=== PATIENT | female | born 1960 | race Caucasian/White ===

== ENCOUNTER 2017-08-09 17:47 | Inpatient (IN) | payer OTHER ==
[~2017-08-09] VITALS: Ht 167.6 cm; Wt 74.8 kg
[~2017-08-09 17:47] MED LIST: ATOR10 PO; DEPA125T OR; IMIT25TA PO; LEVO.075 PO; PRED20 PO; TESS200C PO; ZITH250T PO
[2017-08-09 18:21] VITALS: BP 148/68; PULSE 128; RESP 18; TEMP 102.8; O2SAT 96
[2017-08-09] MEDS ORDERED: SODIUM CHLOR 0.9% 1000 ML INJ 1,000 ML IV ONE (19:10)
[2017-08-09] MEDS ORDERED: SODIUM CHLOR 0.9% 1000 ML INJ 800 ML IV ONE (19:10)
[2017-08-09] MEDS ORDERED: DEXAMETHASONE SOD PHOS 4 MG/ML VIAL IV PUSH ONE (19:15)
[2017-08-09] MEDS ORDERED: KETOROLAC TROMETHAMINE 30 MG/ML (IVP) VIAL IV PUSH ONE (19:15)
[2017-08-09] MEDS ORDERED: ONDANSETRON HCL 4 MG/2 ML VIAL IV ONE (19:15)
--- NOTE | 2017-08-09 19:16 | PD ---
HPI Chief Complaint: GI Complaint Time Seen by Provider: 19:05 Travel History International Travel<30 days: No Contact w/Intl Traveler<30days: No Traveled to known affect area: No History of Present Illness HPI 56-year-old female here for evaluation of sore throat/possible strep pharyngitis , nausea, vomiting, diarrhea, and abdominal discomfort. Symptoms have been going on for the last 36 hours. Emesis is bilious/nonbloody. Bowel movements are watery/mucousy/nonbloody/no melena. Abdominal pain is upper. No history of abdominal surgeries. She has had fever and has had little to eat or drink because of her throat pain. The pain is moderate to severe, constant, worse with swallowing. She reports having diarrhea for the last few weeks which has been nonbloody. No recent travel or recent antibiotic use. PFSH Past Medical History Asthma: Yes Diminished Hearing: No Thyroid Disease: Yes Dilation and Curettage (D&C): Yes Social History Alcohol Use: No Tobacco Use: No Substance Use: No Allergies-Medications (Allergen,Severity, Reaction): Coded Allergies: doxycycline (Unverified Allergy, Severe, SWELLING, 08/09/17) minocycline (Unverified Allergy, Severe, SWELLING, 08/09/17) penicillin G (Unverified Allergy, Severe, UNKNOWN, 08/09/17) tigecycline (Unverified Allergy, Severe, SWELLING, 08/09/17) Reported Meds & Prescriptions Reported Meds & Active Scripts Active Reported Meloxicam 15 Mg Tab 15 Mg PO DAILY PRN Divalproex DR (Divalproex Sodium) 500 Mg Tabdr 500 Mg PO BID Levothyroxine (Levothyroxine Sodium) 200 Mcg Tab 200 Mcg PO DAILY Simvastatin 20 Mg Tab 20 Mg PO HS Review of Systems Except as stated in HPI: all other systems reviewed are Neg Physical Exam Narrative GENERAL: Well-developed, well-nourished, ill-appearing, no apparent distress. SKIN: Focused skin assessment warm/dry. No rash. HEAD: Atraumatic. Normocephalic. EYES: Pupils equal and round. No scleral icterus. No injection or drainage. ENT: No nasal bleeding or discharge. Mucous membranes pink and dry. Pharynx is erythematous with bilateral tonsillar exudates. Uvula is midline. No drooling or stridor. NECK: Trachea midline. No JVD. No nuchal rigidity. CARDIOVASCULAR: Tachycardic, regular, rate 120s. RESPIRATORY: No accessory muscle use. Clear to auscultation. Breath sounds equal bilaterally. GASTROINTESTINAL: Abdomen soft, non-tender, nondistended. MUSCULOSKELETAL: No obvious deformities. No clubbing. No cyanosis. No edema. NEUROLOGICAL: Awake and alert. No obvious cranial nerve deficits. Motor grossly within normal limits. Normal speech. PSYCHIATRIC: Appropriate mood and affect; insight and judgment normal. Data Data Last Documented VS Vital Signs Date Time Temp Pulse Resp B/P (MAP) Pulse Ox O2 Delivery O2 Flow Rate FiO2 08/09/17 21:37 108 18 119/62 (81) 95 Room Air 08/09/17 21:35 99.1 Orders Orders Complete Blood Count With Diff (08/09/17 19:10) Comprehensive Metabolic Panel (08/09/17 19:10) Prothrombin Time / Inr (Pt) (08/09/17 19:10) Act Partial Throm Time (Ptt) (08/09/17 19:10) Lactic Acid Sepsis Protocol (08/09/17 19:10) Blood Culture (08/09/17 19:10) Ecg Monitoring (08/09/17 19:10) Iv Access Insert/Monitor (08/09/17 19:10) Oximetry (08/09/17 19:10) Ondansetron Inj (Zofran Inj) (08/09/17 19:15) Sodium Chlor 0.9% 1000 Ml Inj (Ns 1000 M (08/09/17 19:10) Sodium Chlor 0.9% 1000 Ml Inj (Ns 1000 M (08/09/17 19:10) Ketorolac Inj (Toradol Inj) (08/09/17 19:15) Dexamethasone Inj (Decadron Inj) (08/09/17 19:15) Group A Rapid Strep Screen (08/09/17 19:10) Strep Culture (Group A) (08/09/17 19:10) Acetaminophen (Tylenol) (08/09/17 20:00) Acetaminophen 650 Mg/20 Ml Liq (Tylenol (08/09/17 20:15) Ct Abd/Pel W Iv Contrast(Rout) (08/09/17 20:32) Chest, Single Ap (08/09/17 ) Urinalysis - C+S If Indicated (08/09/17 20:46) Monoscreen (08/09/17 20:50) Iohexol 350 Inj (Omnipaque 350 Inj) (08/09/17 21:19) Ceftriaxone Inj (Rocephin Inj) (08/09/17 22:15) Metronidazole 500 Mg Inj (Flagyl 500 Mg (08/09/17 22:15) Labs Laboratory Tests Test 08/09/17 18:30 08/09/17 21:00 08/09/17 21:05 White Blood Count 9.7 TH/MM3 Red Blood Count 4.65 MIL/MM3 Hemoglobin 9.4 GM/DL Hematocrit 30.1 % Mean Corpuscular Volume 64.8 FL Mean Corpuscular Hemoglobin 20.3 PG Mean Corpuscular Hemoglobin Concent 31.3 % Red Cell Distribution Width 21.6 % Platelet Count 260 TH/MM3 Mean Platelet Volume 7.9 FL Neutrophils (%) (Auto) 78.1 % Lymphocytes (%) (Auto) 11.3 % Monocytes (%) (Auto) 10.0 % Eosinophils (%) (Auto) 0.1 % Basophils (%) (Auto) 0.5 % Neutrophils # (Auto) 7.6 TH/MM3 Lymphocytes # (Auto) 1.1 TH/MM3 Monocytes # (Auto) 1.0 TH/MM3 Eosinophils # (Auto) 0.0 TH/MM3 Basophils # (Auto) 0.0 TH/MM3 CBC Comment AUTO DIFF Differential Comment AUTO DIFF CONFIRMED Platelet Estimate NORMAL Platelet Morphology Comment NORMAL Ovalocytes 2+ Prothrombin Time 12.0 SEC Prothromb Time International Ratio 1.1 RATIO Activated Partial Thromboplast Time 30.9 SEC Blood Urea Nitrogen 8 MG/DL Creatinine 0.85 MG/DL Random Glucose 96 MG/DL Total Protein 7.3 GM/DL Albumin 2.7 GM/DL Calcium Level 8.5 MG/DL Alkaline Phosphatase 105 U/L Aspartate Amino Transf (AST/SGOT) 13 U/L Alanine Aminotransferase (ALT/SGPT) 11 U/L Total Bilirubin 0.5 MG/DL Sodium Level 135 MEQ/L Potassium Level 4.0 MEQ/L Chloride Level 101 MEQ/L Carbon Dioxide Level 26.5 MEQ/L Anion Gap 8 MEQ/L Estimat Glomerular Filtration Rate 69 ML/MIN Lactic Acid Level 1.0 mmol/L Urine Color YELLOW Urine Turbidity CLEAR Urine pH 6.0 Urine Specific [place] 1.011 Urine Protein NEG mg/dL Urine Glucose (UA) NEG mg/dL Urine Ketones 15 mg/dL Urine Occult Blood TRACE Urine Nitrite NEG Urine Bilirubin NEG Urine Leukocyte Esterase NEG Urine RBC 0-3 /hpf Urine WBC 0-2 /hpf Urine Squamous Epithelial Cells 0-5 /hpf Urine Mucus MOD /lpf Microscopic Urinalysis Comment CULT NOT INDICATED MDM Medical Decision Making Medical Screen Exam Complete: Yes Emergency Medical Condition: Yes Differential Diagnosis Sepsis, pharyngitis, dehydration, strep pharyngitis, gastroenteritis, viral illness, acute intra-abdominal/surgical process less likely Narrative Course Initial vital signs show heart rate 128, blood pressure 148/60, pulse ox 96% on room air, oral temp of 102.8F. CBC shows WBC 9.7, hemoglobin 9.4, hematocrit 30.1, platelets 260, neutrophils 78%. CMP is essentially unremarkable. Lactic acid is 1.0. UA is not suggestive of UTI. There are no previous labs on the patient and therefore I do not know the patient's baseline hemoglobin. She reports history of low iron requiring iron transfusions in the past. Her stool is heme positive and brown. CT abdomen pelvis ordered to look for possible diverticulitis/colitis as a source for her fever and heme-positive stool. Group A strep is negative. Chest xray: CONCLUSION: No acute disease. CT abdomen/pelvis: CONCLUSION: 1. Mild diffuse wall thickening is noted involving the descending colon, sigmoid colon and rectum consistent with mild acute colitis. Clinical correlation is recommended. 2. Mild splenomegaly. The patient and the patient's significant other were made aware of all findings. Heart rate improved to 96 after 2 L normal saline IV. Case discussed with on-call [facility] physician Dr. Galicia who will admit the patient to his service. Patient will be started on Flagyl and Rocephin to cover both her colitis and pharyngitis. HemaPrompt Point of Care Internal Pos. & Neg. Controls: Passed Fecal Specimen Occult Blood: Positive Comment Heme positive, brown stool. Diagnosis Primary Impression: Sepsis Qualified Codes: A41.9 - Sepsis, unspecified organism Additional Impressions: Colitis Pharyngitis Qualified Codes: J02.9 - Acute pharyngitis, unspecified Anemia Qualified Codes: D64.9 - Anemia, unspecified Admitting Information Admitting Physician Requests: Admit Ramiro Martel MD Aug 09, 2017 19:16
[2017-08-09 19:33] LABS: AUTOMATED NEUTROPHIL # 7.6 TH/MM3 (1.8-7.7); BASOPHIL % 0.5 % (0.0-2.0); EOSINOPHIL % 0.1 % (0.0-4.0); HEMATOCRIT 30.1 % (35.0-46.0); LYMPH % 11.3 % (9.0-44.0); LYMPHOCYTE # 1.1 TH/MM3 (1.0-4.8); MEAN CELL VOLUME 64.8 FL (80.0-100.0); MEAN CORPUSCULAR HEMOGLOBIN 20.3 PG (27.0-34.0); MEAN CORPUSCULAR HGB CONC 31.3 % (32.0-36.0); NEUT % 78.1 % (16.0-70.0); PLATELET COUNT 260 TH/MM3 (150-450); RED BLOOD COUNT 4.65 MIL/MM3 (4.00-5.30); RED CELL DISTRIBUTION WIDTH 21.6 % (11.6-17.2); WHITE BLOOD COUNT 9.7 TH/MM3 (4.0-11.0)
[2017-08-09 19:38] LABS: HEMO FLAGS AUTO DIFF
[2017-08-09 19:45] VITALS: BP 120/68; PULSE 106; RESP 18; O2SAT 95
[2017-08-09 19:49] LABS: APTT (PATIENT) 30.9 SEC (24.3-30.1); INTERNATIONAL NORMALIZED RATIO 1.1 RATIO
[2017-08-09 19:51] VITALS: O2SAT 96
[2017-08-09] MEDS ORDERED: ACETAMINOPHEN 325 MG TAB PO ONE (20:00)
[2017-08-09 20:09] VITALS: BP 120/66; PULSE 107; RESP 18; TEMP 102.3; O2SAT 94
[2017-08-09] MEDS ORDERED: ACETAMINOPHEN 650 MG/20.3 ML UDC PO ONE (20:15)
[2017-08-09 20:18] LABS: OVALOCYTES 2+ (NORMAL)
[2017-08-09 20:19] LABS: PLATELET ESTIMATE SMEAR NORMAL (NORMAL); PLATELET MORPHOLOGY NORMAL (NORMAL); SCAN/DIFF AUTO DIFF CONFIRMED
[2017-08-09 20:22] LABS: BLOOD UREA NITROGEN 8 MG/DL (7-18)
[2017-08-09 20:23] LABS: ALKALINE PHOSPHATASE 105 U/L (45-117); GLOMERULAR FILTRATION RATE 69 ML/MIN (>89)
[2017-08-09 20:24] LABS: ALT (GPT) 11 U/L (10-53); ANION GAP 8 MEQ/L (5-15); AST (GOT) 13 U/L (15-37); BICARBONATE 26.5 MEQ/L (21.0-32.0); CHLORIDE 101 MEQ/L (98-107); SODIUM (NA) 135 MEQ/L (136-145); TOTAL BILIRUBIN ADULT 0.5 MG/DL (0.2-1.0)
[2017-08-09] MEDS ORDERED: SIMV20TA PO (20:53)
[2017-08-09] MEDS ORDERED: DIVA500T PO (20:53)
[2017-08-09] MEDS ORDERED: MELO-1 PO (20:53)
[2017-08-09] MEDS ORDERED: LEVO200T4 PO (20:53)
--- NOTE | 2017-08-09 21:03 | RADRPT ---
EXAM DATE/TIME: 08/09/2017 20:55 [facility] COMPARISON: No previous studies available for comparison. INDICATIONS : Fever and vomiting. MEDICAL HISTORY : Asthma. SURGICAL HISTORY : None. ENCOUNTER: Initial ACUITY: 2 days PAIN SCORE: 0/10 LOCATION: Bilateral chest FINDINGS: A single view of the chest demonstrates the lungs to be symmetrically aerated without evidence of mas s, infiltrate or effusion. The cardiomediastinal contours are unremarkable. Osseous structures are intact. CONCLUSION: No acute disease. Marcio Cota MD on August 09, 2017 at 21:01 Board Certified Radiologist. This report was verified electronically.
[2017-08-09] MEDS ORDERED: IOHEXOL 350 MG/ML 10 ML VIAL (for RAD DIAG) IVCONTRAST ONE (21:19)
[2017-08-09 21:35] VITALS: BP 124/63; PULSE 98; RESP 18; TEMP 99.1; O2SAT 94
[2017-08-09 21:37] VITALS: BP 119/62; PULSE 108; RESP 18; O2SAT 95
[2017-08-09 21:40] LABS: BLOOD, URINE TRACE (NEG); GLUCOSE,URINE NEG (NEG); KETONE, URINE 15 mg/dL (NEG); NITRITE,URINE NEG (NEG)
--- NOTE | 2017-08-09 21:42 | RADRPT ---
EXAM DATE/TIME: 08/09/2017 21:15 [facility] COMPARISON: No previous studies available for comparison. INDICATIONS : Abdominal pain and diarrhea X 3 days. IV CONTRAST: 96 cc Omnipaque 350 (iohexol) IV ORAL CONTRAST: No oral contrast ingested. RADIATION DOSE: 8.36 CTDIvol (mGy) MEDICAL HISTORY : Asthma SURGICAL HISTORY : D & C ENCOUNTER: Initial ACUITY: 3 days PAIN SCALE: 6/10 LOCATION: abdomen TECHNIQUE: Volumetric scanning of the abdomen and pelvis was performed. Using automated exposure control and ad justment of the mA and/or kV according to patient size, radiation dose was kept as low as reasonably achievable to obtain optimal diagnostic quality images. DICOM format image data is available electro nically for review and comparison. FINDINGS: LOWER LUNGS: The visualized lower lungs are clear. LIVER: Homogeneous density without lesion. There is no dilation of the biliary tree. No calcified gallston es. SPLEEN: Mild splenomegaly is noted. PANCREAS: Within normal limits. KIDNEYS: Normal in size and shape. There is no mass, stone or hydronephrosis. ADRENAL GLANDS: Within normal limits. VASCULAR: There is no aortic aneurysm. BOWEL/MESENTERY: Mild diffuse wall thickening is noted involving the descending colon, sigmoid colon and rectum consis tent with mild acute colitis. Clinical correlation is recommended. The appendix is normal. ABDOMINAL WALL: Within normal limits. RETROPERITONEUM: There is no lymphadenopathy. BLADDER: No wall thickening or mass. REPRODUCTIVE: Within normal limits. INGUINAL: There is no lymphadenopathy or hernia. MUSCULOSKELETAL: Within normal limits for patient age. CONCLUSION: 1. Mild diffuse wall thickening is noted involving the descending colon, sigmoid colon and rectum con sistent with mild acute colitis. Clinical correlation is recommended. 2. Mild splenomegaly. Rajat Woo MD on August 09, 2017 at 21:33 Board Certified Radiologist. This report was verified electronically.
[2017-08-09 21:55] LABS: URINE COLOR YELLOW (YELLW/STRAW)
[2017-08-09 21:56] LABS: MUCUS URINE MOD /lpf (OCC); RBC, URINE 0-3 /hpf (0-3); SQUAMOUS EPITHELIAL CELL URINE 0-5 /hpf (0-5)
[2017-08-09 21:57] LABS: COMMENT (UR) CULT NOT INDICATED; CULTURE IF INDICATED CULT NOT INDICATED; WBC, URINE 0-2 /hpf (0-5)
[2017-08-09] MEDS ORDERED: cefTRIAXone INJ 1,000 MG in SODIUM CHLORIDE 0.9% INJ 100 ML IV ONE (22:15)
[2017-08-09] MEDS ORDERED: metroNIDAZOLE 500 MG INJ 100 ML IV ONE (22:15)
[2017-08-09] MEDS ORDERED: ACETAMINOPHEN 500 MG CPLT PO PRN (22:30)
[2017-08-09] MEDS ORDERED: SODIUM CHLOR 0.9% 1000 ML INJ 1,000 ML IV SCH (22:30)
[2017-08-10 00:38] VITALS: BP 107/60; PULSE 81; RESP 16; TEMP 95.9; O2SAT 98
[2017-08-10 04:30] VITALS: BP 110/59; PULSE 80; RESP 18; TEMP 97.5; O2SAT 100
[2017-08-10 06:12] LABS: AUTOMATED NEUTROPHIL # 6.2 TH/MM3 (1.8-7.7); BASOPHIL % 0.3 % (0.0-2.0); EOSINOPHIL % 0.1 % (0.0-4.0); HEMATOCRIT 27.5 % (35.0-46.0); LYMPH % 6.2 % (9.0-44.0); LYMPHOCYTE # 0.4 TH/MM3 (1.0-4.8); MEAN CELL VOLUME 65.5 FL (80.0-100.0); MEAN CORPUSCULAR HGB CONC 30.5 % (32.0-36.0); MONO % 7.2 % (0.0-8.0); NEUT % 86.2 % (16.0-70.0); PLATELET COUNT 220 TH/MM3 (150-450); RED BLOOD COUNT 4.21 MIL/MM3 (4.00-5.30); RED CELL DISTRIBUTION WIDTH 22.3 % (11.6-17.2); WHITE BLOOD COUNT 7.1 TH/MM3 (4.0-11.0)
[2017-08-10 06:19] LABS: CHLORIDE 109 MEQ/L (98-107); POTASSIUM 4.1 MEQ/L (3.5-5.1); SODIUM (NA) 143 MEQ/L (136-145)
[2017-08-10 06:22] LABS: ANION GAP 10 MEQ/L (5-15); BICARBONATE 24.2 MEQ/L (21.0-32.0); BLOOD UREA NITROGEN 10 MG/DL (7-18)
[2017-08-10 06:25] LABS: GLOMERULAR FILTRATION RATE 96 ML/MIN (>89)
[2017-08-10 06:32] LABS: HEMO FLAGS AUTO DIFF
[2017-08-10 07:11] LABS: OVALOCYTES 1+ (NORMAL); PLATELET ESTIMATE SMEAR NORMAL (NORMAL); PLATELET MORPHOLOGY NORMAL (NORMAL); ROULEAUX PRESENT (NORMAL); SCAN/DIFF AUTO DIFF CONFIRMED
--- NOTE | 2017-08-10 07:31 | HHI.HP ---
HPI Service [facility] Primary Care Physician Asher Baum DO Admission Diagnosis sepsis, colitis, pharyngitis, anemia Chief Complaint: Sore throat, weakness, diarrhea Travel History International Travel<30 Days: No Contact w/Intl Traveler <30 Da: No Traveled to Known Affected Are: No Sepsis Criteria SIRS Criteria (2 or more): Temp > 100.9 or < 96.8, Heart rate over 90 Sepsis Criteria (SIRS+source): Infect source susp/known Criteria Outcome: Meets sepsis criteria History of Present Illness 56-year-old relatively healthy female presented to ER via private vehicle for evaluation of sore throat/possible strep pharyngitis, nausea, vomiting, diarrhea , and abdominal discomfort. Sore throat and emesis have been going on for the last 36 hours, but she has had loose stools for the last 2 weeks. Emesis is bilious/nonbloody. Bowel movements are watery/nonbloody/no melena. Abdominal pain is upper and lower left quadrant. No history of abdominal surgeries. She has had fever and has had little to eat or drink over the last day and a half because of her throat pain. The throat pain is moderate to severe, constant, worse with swallowing. She reports having diarrhea for the last few weeks which has been nonbloody. No recent travel or recent antibiotic use. No others in household with similar illness. No unusual or undercooked foods. No recent medication changes, specifically no recent thyroid medication adjustment. She reports she been on the same dose of thyroid medication for approximately 5 or 6 years. She is not sure when her last thyroid blood work was done and she does blood work relatively infrequently. Review of Systems Constitutional: COMPLAINS OF: Fatigue, Fever, Change in appetite Eyes: DENIES: Blurred vision, Diplopia, Eye inflammation, Eye pain, Vision loss , Photosensitivity, Double Vision Ears, nose, mouth, throat: DENIES: Tinnitus, Hearing loss, Vertigo, Nasal discharge, Oral lesions, Throat pain, Hoarseness, Ear Pain, Running Nose, Epistaxis, Sinus Pain, Toothache, Odynophagia Respiratory: DENIES: Apneas, Cough, Snoring, Wheezing, Hemoptysis, Sputum production, Shortness of breath Cardiovascular: DENIES: Chest pain, Palpitations, Syncope, Dyspnea on Exertion , PND, Lower Extremity Edema, Orthopnea, Claudication Gastrointestinal: COMPLAINS OF: Abdominal pain, Diarrhea, Nausea, Vomiting, Difficulty Swallowing, DENIES: Black stools, Bloody stools, BRB per rectum, Constipation, GERD, Reflux, Anorexia, See HPI Musculoskeletal: COMPLAINS OF: Joint pain Integumentary: DENIES: Abnormal pigmentation, Pruritus, Rash, Nail changes, Breast masses, Breast skin changes, Nipple discharge Hematologic/lymphatic: DENIES: Bruising, Lymphadenopathy Immunologic/allergic: DENIES: Eczema, Urticaria Neurologic: DENIES: Abnormal gait, Headache, Localized weakness, Paresthesias, Seizures, Speech Problems, Tremor, Poor Balance Psychiatric: DENIES: Anxiety, Confusion, Mood changes, Depression, Hallucinations, Agitation, Suicidal Ideation, Homicidal Ideation, Delusions, History of Bipolar, History of Schizophrenia Past Family Social History Past Medical History Hypothyroidism Hyperlipidemia Migraine headache Osteoarthritis Past Surgical History D&C approximate 40 years ago Reported Medications Meloxicam 15 Mg Tab 15 Mg PO DAILY PRN Divalproex DR (Divalproex Sodium) 500 Mg Tabdr 500 Mg PO BID Levothyroxine (Levothyroxine Sodium) 200 Mcg Tab 200 Mcg PO DAILY Simvastatin 20 Mg Tab 20 Mg PO HS Allergies: Coded Allergies: doxycycline (Unverified Allergy, Severe, SWELLING, 08/09/17) minocycline (Unverified Allergy, Severe, SWELLING, 08/09/17) penicillin G (Unverified Allergy, Severe, UNKNOWN, 08/09/17) tigecycline (Unverified Allergy, Severe, SWELLING, 08/09/17) Family History Mother is alive and has hypertension Father is unknown to her Social History No tobacco in 30 years prior to that smoked less than a half pack per day for a few years No alcohol Denies illicit drug use 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 Has 5 adult children Physical Exam Vital Signs Vital Signs Date Time Temp Pulse Resp B/P (MAP) Pulse Ox O2 Delivery O2 Flow Rate FiO2 08/10/17 04:30 97.5 80 18 110/59 (76) 100 Room Air 08/10/17 00:38 95.9 81 16 107/60 (76) 98 Nasal Cannula 1.00 08/09/17 21:37 108 18 119/62 (81) 95 Room Air 08/09/17 21:35 99.1 98 18 124/63 (83) 94 Room Air 08/09/17 20:27 18 08/09/17 20:09 102.3 107 18 120/66 (84) 94 Room Air 08/09/17 19:51 96 Room Air 08/09/17 19:45 106 18 120/68 (85) 95 Room Air 08/09/17 18:21 102.8 128 18 148/68 (94) 96 Physical Exam GENERAL: This is a well-nourished, well-developed patient, in no apparent distress. Somewhat pale appearing SKIN: No rashes, ecchymoses or lesions. Cool and dry. HEAD: Atraumatic. Normocephalic. No temporal or scalp tenderness. EYES: Pupils equal round and reactive. Extraocular motions intact. No scleral icterus. No injection or drainage. ENT: Nose without bleeding, purulent drainage or septal hematoma. Throat with mild erythema but no exudate. Uvula midline. Airway patent. NECK: Trachea midline. No JVD or lymphadenopathy. Supple, nontender, no meningeal signs. CARDIOVASCULAR: Regular rate and rhythm without murmurs, gallops, or rubs. RESPIRATORY: Clear to auscultation. Breath sounds equal bilaterally. No wheezes , rales, or rhonchi. GASTROINTESTINAL: Abdomen soft, nondistended, mild tenderness to palpation in epigastrium and left lower quadrant. No hepato-splenomegaly, or palpable masses. No guarding or rebound. Bowel sounds normal. MUSCULOSKELETAL: Extremities without clubbing, cyanosis, or edema. No joint tenderness, effusion, or edema noted. No calf tenderness. NEUROLOGICAL: Awake and alert. Cranial nerves II through XII intact. Motor and sensory grossly within normal limits. Five out of 5 muscle strength in all muscle groups. Normal speech. Laboratory Laboratory Tests Test 08/09/17 18:30 08/09/17 21:00 08/09/17 21:05 08/10/17 05:55 White Blood Count 9.7 7.1 Red Blood Count 4.65 4.21 Hemoglobin 9.4 8.4 Hematocrit 30.1 27.5 Mean Corpuscular Volume 64.8 65.5 Mean Corpuscular Hemoglobin 20.3 20.0 Mean Corpuscular Hemoglobin Concent 31.3 30.5 Red Cell Distribution Width 21.6 22.3 Platelet Count 260 220 Mean Platelet Volume 7.9 8.1 Neutrophils (%) (Auto) 78.1 86.2 Lymphocytes (%) (Auto) 11.3 6.2 Monocytes (%) (Auto) 10.0 7.2 Eosinophils (%) (Auto) 0.1 0.1 Basophils (%) (Auto) 0.5 0.3 Neutrophils # (Auto) 7.6 6.2 Lymphocytes # (Auto) 1.1 0.4 Monocytes # (Auto) 1.0 0.5 Eosinophils # (Auto) 0.0 0.0 Basophils # (Auto) 0.0 0.0 CBC Comment AUTO DIFF AUTO DIFF Differential Comment AUTO DIFF CONFIRMED AUTO DIFF CONFIRMED Platelet Estimate NORMAL NORMAL Platelet Morphology Comment NORMAL NORMAL Ovalocytes 2+ 1+ Prothrombin Time 12.0 Prothromb Time International Ratio 1.1 Activated Partial Thromboplast Time 30.9 Blood Urea Nitrogen 8 10 Creatinine 0.85 0.64 Random Glucose 96 158 Total Protein 7.3 Albumin 2.7 Calcium Level 8.5 7.9 Alkaline Phosphatase 105 Aspartate Amino Transf (AST/SGOT) 13 Alanine Aminotransferase (ALT/SGPT) 11 Total Bilirubin 0.5 Sodium Level 135 143 Potassium Level 4.0 4.1 Chloride Level 101 109 Carbon Dioxide Level 26.5 24.2 Anion Gap 8 10 Estimat Glomerular Filtration Rate 69 96 Lactic Acid Level 1.0 Urine Color YELLOW Urine Turbidity CLEAR Urine pH 6.0 Urine Specific [place] 1.011 Urine Protein NEG Urine Glucose (UA) NEG Urine Ketones 15 Urine Occult Blood TRACE Urine Nitrite NEG Urine Bilirubin NEG Urine Leukocyte Esterase NEG Urine RBC 0-3 Urine WBC 0-2 Urine Squamous Epithelial Cells 0-5 Urine Mucus MOD Microscopic Urinalysis Comment CULT NOT INDICATED Monoscreen NEG Basophilic Stippling MOD Rouleau PRESENT Thyroid Stimulating Hormone 3rd Gen 0.006 Date/Time Source Procedure Growth Status 08/09/17 19:15 Blood Peripheral Aerobic Blood Culture Pending Received 08/09/17 19:15 Blood Peripheral Anaerobic Blood Culture Pending Received 08/09/17 19:10 Throat Group A Streptococcus Screen Pending Received Result Diagram: 08/10/17 0555 08/10/17 0555 Imaging Last 72 hours Impressions Abdomen/Pelvis CT 08/09/172031 Signed Impressions: Service Date/Time: Wednesday, August 09, 2017 21:15 - CONCLUSION: 1. Mild diffuse wall thickening is noted involving the descending colon, sigmoid colon and rectum consistent with mild acute colitis. Clinical correlation is recommended. 2. Mild splenomegaly. Rajat Woo MD Chest X-Ray 08/09/17 0000 Signed Impressions: Service Date/Time: Wednesday, August 09, 2017 20:55 - CONCLUSION: No acute disease. Marcio Cota MD Septic Shock Reassessment Heart: Regular rate and rhythm Lungs: Clear Skin: Warm Peripheral Pulses: Bounding Right Posterior Tibial Bounding Left Posterior Tibial Capillary Refill: Brisk Caprini VTE Risk Assessment Caprini VTE Risk Assessment: Mod/High Risk (score >= 2) Caprini Risk Assessment Model Point Value = 1 Point Value = 2 Point Value = 3 Point Value = 5 Age 41-60 Minor surgery BMI > 25 kg/m2 Swollen legs Varicose veins or History of unexplained or recurrent spontaneous Oral contraceptives or hormone replacement Sepsis (< 1 month) Serious lung disease, including pneumonia (< 1 month) Abnormal pulmonary function Acute myocardial infarction Congestive heart failure (< 1 month) History of inflammatory bowel disease Medical patient at bed rest Age 61-74 Arthroscopic surgery Major open surgery (> 45 min) Laparoscopic surgery (> 45 min) Malignancy Confined to bed (> 72 hours) Immobilizing plaster cast Central venous access Age >= 75 History of VTE Family history of VTE Factor V Leiden Prothrombin [id number] Lupus anticoagulant Anticardiolipin antibodies Elevated serum homocysteine Heparin-induced thrombocytopenia Other congenital or acquired thrombophilia Stroke (< 1 month) Elective arthroplasty Hip, pelvis, or leg fracture Acute spinal cord injury (< 1 month) Prophylaxis Regimen Total Risk Factor Score Risk Level Prophylaxis Regimen 0-1 Low Early ambulation 2 Moderate Order ONE of the following: *Sequential Compression Device (SCD) *Heparin 5000 units SQ BID 3-4 Higher Order ONE of the following medications: *Heparin 5000 units SQ TID *Enoxaparin/Lovenox 40 mg SQ daily (WT < 150 kg, CrCl > 30 mL/min) *Enoxaparin/Lovenox 30 mg SQ daily (WT < 150 kg, CrCl > 10-29 mL/min) *Enoxaparin/Lovenox 30 mg SQ BID (WT < 150 kg, CrCl > 30 mL/min) AND/OR *Sequential Compression Device (SCD) 5 or more Highest Order ONE of the following medications: *Heparin 5000 units SQ TID (Preferred with Epidurals) *Enoxaparin/Lovenox 40 mg SQ daily (WT < 150 kg, CrCl > 30 mL/min) *Enoxaparin/Lovenox 30 mg SQ daily (WT < 150 kg, CrCl > 10-29 mL/min) *Enoxaparin/Lovenox 30 mg SQ BID (WT < 150 kg, CrCl > 30 mL/min) AND *Sequential Compression Device (SCD) Assessment and Plan Problem List: (1) Colitis ICD Codes: K52.9 - Noninfective gastroenteritis and colitis, unspecified Status: Acute Plan: Likely infectious. Continue antibiotics and rehydration therapy. Appears improved this morning. Advance diet as tolerated. Have GI see the patient. (2) Sepsis ICD Codes: A41.9 - Sepsis, unspecified organism Status: Acute Plan: Vital signs stable. Clinically improving. Continue current therapy. Source likely associated with her colitis. (3) Anemia ICD Codes: D64.9 - Anemia, unspecified Status: Acute Plan: Reportedly has had problems with iron deficiency anemia in the past. Hemoglobin has dropped a little this morning which may be associated with hemodilution. Stool was Hemoccult positive per ER physician communication. Have GI see the patient. Continue to monitor. (4) Pharyngitis ICD Codes: J02.9 - Acute pharyngitis, unspecified Status: Acute Plan: Likely viral. Use saline gargles and Solu-Medrol. (5) Hypothyroidism ICD Codes: E03.9 - Hypothyroidism, unspecified Status: Chronic Plan: TSH is quite suppressed. We'll decrease her dose of levothyroxine. (6) Migraine headache ICD Codes: G43.909 - Migraine, unspecified, not intractable, without status migrainosus Status: Chronic Plan: Continue prophylactic medication. Code Status full Discussed Condition With Patient, her and ER physician. Physician Certification 2 Midnight Certification Type: Admission for Inpatient Services Order for Inpatient Services The services are ordered in accordance with Medicare regulations or non- Medicare payer requirements, as applicable. In the case of services not specified as inpatient-only, they are appropriately provided as inpatient services in accordance with the 2-midnight benchmark. Estimated LOS (days): 2 days is the estimated time the patient will need to remain in the hospital, assuming treatment plan goals are met and no additional complications. Post-Hospital Plan: Home Problem Qualifiers (1) Sepsis: Qualified Codes: A41.9 - Sepsis, unspecified organism (2) Anemia: (3) Pharyngitis: Qualified Codes: J02.9 - Acute pharyngitis, unspecified (4) Migraine headache: Kristopher Galicia MD PhD Aug 10, 2017 07:31
[2017-08-10] MEDS ORDERED: methylPREDNISolone SOD SUCC 40 MG/1 ML VIAL IV PUSH ONE (07:45)
[2017-08-10] MEDS ORDERED: LIDOCAINE VISCOUS 2% SOLN 15 ML UDC SWISH-SPIT PRN (07:45)
[2017-08-10] MEDS: metroNIDAZOLE 500 MG INJ 100 ML IV SCH ×3 (07:58→20:50)
[2017-08-10 08:10] VITALS: BP 100/55; PULSE 85; RESP 16; TEMP 97.7; O2SAT 97
[2017-08-10 09:27] LABS: TRANSFERRIN IRON PROFILE 211 MG/DL (200-360)
[2017-08-10] MEDS: DIVALPROEX DR 500 MG TABEC PO SCH ×2 (10:04→20:50)
[2017-08-10] MEDS ORDERED: PEG (High)/E-LYTE SOLN 4000 ML BTL PO ONE (14:00)
[2017-08-10 15:08] LABS: HEMATOCRIT 27.9 % (35.0-46.0)
[2017-08-10 15:11] LABS: REVIEW FLAG FINAL
[2017-08-10 16:00] VITALS: BP 117/66; PULSE 91; RESP 20; TEMP 98.4; O2SAT 96
[2017-08-10] MEDS ORDERED: MAGNESIUM CITRATE SOLN 300 ML BTL PO ONE ×2 (16:30→20:00)
[2017-08-10 20:45] VITALS: BP 143/84; PULSE 98; RESP 20; TEMP 97.4; O2SAT 100
[2017-08-10] MEDS: PRAVASTATIN SOD 40 MG TAB PO SCH (20:50)
[2017-08-10] MEDS: cefTRIAXone INJ 1,000 MG in SODIUM CHLORIDE 0.9% INJ 100 ML IV SCH (20:51)
[2017-08-11 00:28] VITALS: BP 117/75; PULSE 73; RESP 18; TEMP 96.6; O2SAT 96
[2017-08-11] MEDS: LEVOTHYROXINE SODIUM 150 MCG TAB PO SCH ×2 (05:56→05:59)
[2017-08-11] MEDS: metroNIDAZOLE 500 MG INJ 100 ML IV SCH ×3 (05:57→20:01)
[2017-08-11 08:00] VITALS: BP_SYST 109; BP_SYST 124; BP_DIAS 68; BP_DIAS 89; PULSE 75; PULSE 80; RESP 16; RESP 18; TEMP 97.7; O2SAT 97
--- NOTE | 2017-08-11 08:49 | HHI.PR ---
Subjective Remarks Multiple bowel movements last night in preparation for colonoscopy planned today. Still having some left lower quadrant pain. Also still complains of significant sore throat. No vomiting. Objective Vitals Vital Signs Date Time Temp Pulse Resp B/P (MAP) Pulse Ox O2 Delivery O2 Flow Rate FiO2 08/11/17 00:28 96.6 73 18 117/75 (89) 96 08/10/17 20:45 97.4 98 20 143/84 (103) 100 08/10/17 16:00 98.4 91 20 117/66 (83) 96 08/10/17 10:52 GENERAL: Awake and alert, cooperative with exam. No acute distress. SKIN: Warm and dry. HEAD: Normocephalic. Oropharynx noted for posterior erythema but no exudate. Erythema seems worse on the left. Uvula midline. EYES: No scleral icterus. No injection or drainage. NECK: Supple, trachea midline. No JVD or lymphadenopathy. CARDIOVASCULAR: Regular rate and rhythm without murmurs, gallops, or rubs. RESPIRATORY: Breath sounds equal bilaterally. No accessory muscle use. GASTROINTESTINAL: Abdomen soft, nondistended. Some mild tenderness to palpation noted in left lower quadrant. Bowel sounds normal. MUSCULOSKELETAL: No cyanosis, or edema. BACK: No CVA tenderness. Result Diagram: 08/10/17 1455 08/10/17 0555 Imaging Last 72 hours Impressions Abdomen/Pelvis CT 08/09/172031 Signed Impressions: Service Date/Time: Wednesday, August 09, 2017 21:15 - CONCLUSION: 1. Mild diffuse wall thickening is noted involving the descending colon, sigmoid colon and rectum consistent with mild acute colitis. Clinical correlation is recommended. 2. Mild splenomegaly. Rajat Woo MD Chest X-Ray 08/09/17 0000 Signed Impressions: Service Date/Time: Wednesday, August 09, 2017 20:55 - CONCLUSION: No acute disease. Marcio Cota MD Urinary Catheter: No Vascular Central Line Catheter: No A/P Problem List: (1) Colitis ICD Codes: K52.9 - Noninfective gastroenteritis and colitis, unspecified Status: Acute Plan: Likely infectious. Continue antibiotics and rehydration therapy. GI has seen patient. Planning colonoscopy today. Clinically improving. (2) Sepsis ICD Codes: A41.9 - Sepsis, unspecified organism Status: Acute Plan: Vital signs stable. Clinically improving. Continue current therapy. Source likely associated with her colitis. (3) Anemia ICD Codes: D64.9 - Anemia, unspecified Status: Acute Plan: Reportedly has had problems with iron deficiency anemia in the past. Stool was Hemoccult positive per ER physician communication. GI has seen the patient and colonoscopy planned. Vital signs relatively stable. Hemoglobin stabilized yesterday. This a.m. labs pending. (4) Pharyngitis ICD Codes: J02.9 - Acute pharyngitis, unspecified Status: Acute Plan: Group A strep noted. Rocephin should cover. We'll provide pain medication and steroid for throat pain. (5) Hypothyroidism ICD Codes: E03.9 - Hypothyroidism, unspecified Status: Chronic Plan: TSH is quite suppressed. We'll decrease her dose of levothyroxine. (6) Migraine headache ICD Codes: G43.909 - Migraine, unspecified, not intractable, without status migrainosus Status: Chronic Plan: Continue prophylactic medication. Discharge Planning Hopefully discharge tomorrow. Problem Qualifiers (1) Sepsis: Qualified Codes: A41.9 - Sepsis, unspecified organism (2) Anemia: (3) Pharyngitis: Qualified Codes: J02.9 - Acute pharyngitis, unspecified (4) Migraine headache: Kristopher Galicia MD PhD Aug 11, 2017 08:49
[2017-08-11] MEDS ORDERED: traMADol HCL 50 MG TAB PO PRN (09:00)
--- NOTE | 2017-08-11 10:04 | MB ---
cc: JUN GODWIN M.D., CRAIG D.O. DRIGGERS, WESLEY M.D. Patient of Dr. Kristopher Galicia DATE OF CONSULTATION: 08/10/2017 REASON FOR CONSULTATION Colitis. HISTORY OF PRESENT ILLNESS Ms. Shukla is a 56-year-old lady, presented to the emergency room essentially with sore throat with some nausea. She states she has been having loose stools and diarrhea on and off for about a week. She is not reporting any bleeding in the bowels and no significant abdominal pain. She does report a colonoscopy when she turned 51. She reports at that time, that was normal. REVIEW OF SYSTEMS Fatigue, fever, sore throat. No GI related symptoms at this time except for loose bowels. PAST MEDICAL HISTORY 1. Hypothyroidism. 2. Hyperlipidemia. 3. Migraine headaches. 4. Osteoarthritis. PAST SURGICAL HISTORY D&C. MEDICATIONS 1. Meloxicam. 2. Divalproex. 3. Levothyroxin. 4. Simvastatin. ALLERGIES DOXYCYCLINE. MINOCYCLINE. PENICILLIN. FAMILY HISTORY Noncontributory. SOCIAL HISTORY She is was smoker but quit about 30 years ago and no alcohol. PHYSICAL EXAMINATION. GENERAL: Reveals a well-nourished lady in no apparent distress. VITAL SIGNS: Vitals are stable. HEAD AND NECK EXAMINATION: Anicteric sclerae. CHEST: Bilateral air entry with rales. ABDOMEN: Abdomen is soft, moderately obese, nontender. No hepatosplenomegaly. Bowel sounds are present. PLASTIC DOLLS MOLD FILLER: Exam is nonfocal. RECTAL: Exam deferred at this time. LABORATORY DATA Labs reveal white cell count of 7.1, hemoglobin 8.4, creatinine 0.64, INR 1.1. IMAGING STUDIES CT of the abdomen and pelvis reveals left-sided colitis, mild splenomegaly. Chest x-ray is unremarkable. IMPRESSION Colitis, probably infectious in etiology. RECOMMENDATIONS Stool studies recommended. Colonoscopy discussed with the patient; this will be scheduled for tomorrow. Continue to monitor labs. Continue antibiotics as ordered. Further recommendations to follow. Thank you for this referral. MD TERESSA Lu/CK /1:51 PM /9:43 AM
[2017-08-11] MEDS: DIVALPROEX DR 500 MG TABEC PO SCH ×2 (10:11→20:00)
[2017-08-11] MEDS: methylPREDNISolone SOD SUCC 40 MG/1 ML VIAL IV PUSH SCH ×2 (10:23→20:00)
[2017-08-11 11:42] VITALS: BP 121/64; PULSE 78; RESP 18; TEMP 98.4; O2SAT 100
[2017-08-11] MEDS ORDERED: PROPOFOL 200 MG/20 ML AMP IV ONE (12:06)
--- NOTE | 2017-08-11 12:19 | GIPROC ---
[facility] [address] [place] [address], [id number] COLONOSCOPY PROCEDURE REPORT EXAM DATE: 08/11/2017 PATIENT NAME: Narcisa Shukla MR #: [id number] BIRTHDATE: 1960 ENDOSCOPIST: Froilan Finnegan MD ORDER #: [id number] MANAGER ORACLE: Osiel Holguin and Patricia Cronin STATUS: inpatient INDICATIONS: The patient is a 56 yr old female here for a colonoscopy due to an abnormal CT, abdominal pain, and abdominal pain in the right lower quadrant PROCEDURE PERFORMED: Colonoscopy with biopsy MEDICATIONS: None and Per Anesthesia. PREP QUALITY: The [place] Bowel Prep Score was Right colon 2, Mid colon 3, and Left colon 3. Total = 8. ESTIMATED BLOOD LOSS: None CONSENT: The patient understands the risks and benefits of the procedure and understands that these risks include, but are not limited to: sedation, allergic reaction, infection, perforation and/or bleeding. Alternative means of evaluation and treatment include, among others: physical exam, x-rays, and/or surgical intervention. The patient elects to proceed with this endoscopic procedure. medical equipment was checked for proper function. Hand hygiene and appropriate measures for infection prevention was taken. After the risks, benefits and alternatives of the procedure were thoroughly explained, Informed consent was verified, confirmed and timeout was successfully executed by the treatment team. A digital exam revealed external hemorrhoids The Pentax [id number] endoscope was introduced through the anus and advanced to the cecum, which was identified by both the appendix and ileocecal valve. The instrument was then slowly withdrawn as the colon was fully examined. COLON FINDINGS: A circumferential diffuse patch of abnormal mucosa was found in the sigmoid colon and rectum. The mucosa was congested, edematous and erythematous. Multiple biopsies were performed using cold forceps. Retroflexed views revealed internal hemorrhoids and Retroflexed views revealed small internal hemorrhoids The scope was then completely withdrawn from the patient and the procedure terminated. ADVERSE EVENTS: There were no complications. IMPRESSIONS: 1. Circumferential diffuse abnormal mucosa was found in the sigmoid colon and rectum; The mucosa was congested, edematous and erythematous; multiple biopsies were performed using cold forceps 2. Retroflexed views revealed internal hemorrhoids 3. Retroflexed views revealed small internal hemorrhoids 4. Revealed external hemorrhoids RECOMMENDATIONS: 1. Await biopsy results. Biopsy results will not be ready for 7-10 days. If you don't hear from us in two weeks, call our office for results. 2. Continue surveillance 3. Yearly hemoccult RECALL: Return 3 months Colonoscopy, pending biopsy results Froilan Finnegan MD eSigned: Froilan Finnegan MD 08/11/2017 12:18 PM cc: Kristopher Galicia M.D.
[2017-08-11 13:45] LABS: AUTOMATED NEUTROPHIL # 4.6 TH/MM3 (1.8-7.7); BASOPHIL % 0.6 % (0.0-2.0); EOSINOPHIL % 0.3 % (0.0-4.0); HEMATOCRIT 29.3 % (35.0-46.0); LYMPH % 14.5 % (9.0-44.0); LYMPHOCYTE # 0.8 TH/MM3 (1.0-4.8); MEAN CELL VOLUME 65.5 FL (80.0-100.0); MEAN CORPUSCULAR HEMOGLOBIN 20.1 PG (27.0-34.0); MEAN CORPUSCULAR HGB CONC 30.7 % (32.0-36.0); MONO % 6.2 % (0.0-8.0); NEUT % 78.4 % (16.0-70.0); PLATELET COUNT 259 TH/MM3 (150-450); RED BLOOD COUNT 4.47 MIL/MM3 (4.00-5.30); RED CELL DISTRIBUTION WIDTH 22.6 % (11.6-17.2); WHITE BLOOD COUNT 5.9 TH/MM3 (4.0-11.0)
[2017-08-11 13:48] LABS: HEMO FLAGS AUTO DIFF
[2017-08-11 14:39] VITALS: BP 123/83; PULSE 76; RESP 16; TEMP 96.8; O2SAT 99
[2017-08-11 14:41] LABS: OVALOCYTES 1+ (NORMAL); PLATELET ESTIMATE SMEAR NORMAL (NORMAL); PLATELET MORPHOLOGY NORMAL (NORMAL); SCAN/DIFF AUTO DIFF CONFIRMED
[2017-08-11 15:18] VITALS: BP 123/83; PULSE 76; RESP 16; TEMP 96.8; O2SAT 99
[2017-08-11 20:00] VITALS: BP 125/70; PULSE 81; RESP 20; TEMP 97.9; O2SAT 97
[2017-08-11] MEDS: PRAVASTATIN SOD 40 MG TAB PO SCH (20:00)
[2017-08-11] MEDS: cefTRIAXone INJ 1,000 MG in SODIUM CHLORIDE 0.9% INJ 100 ML IV SCH (20:00)
[2017-08-12] VITALS: BP 122/71; PULSE 90; RESP 20; TEMP 97.3; O2SAT 95
[2017-08-12 04:00] VITALS: BP 115/70; PULSE 70; RESP 20; TEMP 96.2; O2SAT 99
[2017-08-12] MEDS: LEVOTHYROXINE SODIUM 150 MCG TAB PO SCH (05:01)
[2017-08-12] MEDS: metroNIDAZOLE 500 MG INJ 100 ML IV SCH (05:01)
[2017-08-12 08:00] VITALS: BP 127/73; PULSE 64; RESP 16; TEMP 96.7; O2SAT 98
--- NOTE | 2017-08-12 08:02 | HHI.PR ---
Subjective Remarks Feeling better. Bowel movements have decreased but still has some loose stools particularly after she eats food. Has not noted any blood in stool or melena. Tolerating oral intake. Desires discharge home. Reviewed colonoscopy report with patient. Objective Vitals Vital Signs Date Time Temp Pulse Resp B/P (MAP) Pulse Ox O2 Delivery O2 Flow Rate FiO2 08/12/17 04:00 96.2 70 20 115/70 (85) 99 08/12/17 00:00 97.3 90 20 122/71 (88) 95 08/11/17 20:00 97.9 81 20 125/70 (88) 97 08/11/17 15:18 96.8 76 16 123/83 (96) 99 08/11/17 14:39 96.8 76 16 123/83 (96) 99 08/11/17 12:41 64 18 119/66 (83) 98 Room Air 08/11/17 12:21 98.2 79 14 100/52 (68) 97 Room Air 08/11/17 11:42 98.4 78 18 121/64 (83) 100 08/11/17 08:00 97.7 80 18 124/89 (101) 97 GENERAL: Awake and alert, cooperative with exam. No acute distress. SKIN: Warm and dry. HEAD: Normocephalic. Oropharynx noted for posterior erythema but no exudate. Uvula midline. EYES: No scleral icterus. No injection or drainage. NECK: Supple, trachea midline. No JVD or lymphadenopathy. CARDIOVASCULAR: Regular rate and rhythm without murmurs, gallops, or rubs. RESPIRATORY: Breath sounds equal bilaterally. No accessory muscle use. GASTROINTESTINAL: Abdomen soft, nondistended. Some mild tenderness to palpation noted in left lower quadrant, but less than previous. No guarding or rebound. Bowel sounds normal. MUSCULOSKELETAL: No cyanosis, or edema. BACK: No CVA tenderness. Result Diagram: 08/11/17 1320 08/10/17 0555 Imaging Last 72 hours Impressions Abdomen/Pelvis CT 08/09/172031 Signed Impressions: Service Date/Time: Wednesday, August 09, 2017 21:15 - CONCLUSION: 1. Mild diffuse wall thickening is noted involving the descending colon, sigmoid colon and rectum consistent with mild acute colitis. Clinical correlation is recommended. 2. Mild splenomegaly. Rajat Woo MD Chest X-Ray 08/09/17 0000 Signed Impressions: Service Date/Time: Wednesday, August 09, 2017 20:55 - CONCLUSION: No acute disease. Marcio Cota MD Urinary Catheter: No Vascular Central Line Catheter: No A/P Problem List: (1) Colitis ICD Codes: K52.9 - Noninfective gastroenteritis and colitis, unspecified Status: Acute Plan: Likely infectious. Continue antibiotics and rehydration therapy. Convert to oral antibiotic. GI has seen patient. Colonoscopy done yesterday revealed colitis. Pathology pending. Clinically improving. (2) Sepsis ICD Codes: A41.9 - Sepsis, unspecified organism Status: Acute Plan: Vital signs stable. Clinically improving. Continue current therapy. Source likely associated with her colitis and possibly strep. (3) Anemia ICD Codes: D64.9 - Anemia, unspecified Status: Acute Plan: Reportedly has had problems with iron deficiency anemia in the past. Stool was Hemoccult positive per ER physician communication. Hemoglobin and vital signs stable. We'll replace with oral iron. (4) Pharyngitis ICD Codes: J02.9 - Acute pharyngitis, unspecified Status: Acute Plan: Group A strep noted. We'll provide Omnicef as an outpatient. Give 1 more dose of Solu-Medrol prior to discharge. Throat pain has improved. (5) Hypothyroidism ICD Codes: E03.9 - Hypothyroidism, unspecified Status: Chronic Plan: TSH is quite suppressed. We'll decrease her dose of levothyroxine. Will need repeat TSH in 6-8 weeks. (6) Migraine headache ICD Codes: G43.909 - Migraine, unspecified, not intractable, without status migrainosus Status: Chronic Plan: Continue prophylactic medication. Discharge Planning Discharge home today as long as she tolerates oral antibiotic Problem Qualifiers (1) Sepsis: Qualified Codes: A41.9 - Sepsis, unspecified organism (2) Anemia: (3) Pharyngitis: Qualified Codes: J02.9 - Acute pharyngitis, unspecified (4) Migraine headache: Kristopher Galicia MD PhD Aug 12, 2017 08:02
[2017-08-12] MEDS ORDERED: LEVO.15 PO (08:06)
[2017-08-12] MEDS ORDERED: METR-1 PO (08:06)
[2017-08-12] MEDS ORDERED: CEFD300C PO (08:06)
[2017-08-12] MEDS ORDERED: FERR240T PO (08:06)
--- NOTE | 2017-08-12 08:11 | HHI.DS ---
Discharge Summary Admission Date Aug 09, 2017 at 22:17 Discharge Date: Aug 12, 2017 Admitting Diagnosis sepsis, colitis, pharyngitis, anemia (1) Colitis Diagnosis: Principal ICD Codes: K52.9 - Noninfective gastroenteritis and colitis, unspecified Status: Acute (2) Sepsis Diagnosis: Principal ICD Codes: A41.9 - Sepsis, unspecified organism Status: Acute (3) Anemia Diagnosis: Secondary ICD Codes: D64.9 - Anemia, unspecified Status: Acute (4) Pharyngitis Diagnosis: Principal ICD Codes: J02.9 - Acute pharyngitis, unspecified Status: Acute (5) Hypothyroidism Diagnosis: Secondary ICD Codes: E03.9 - Hypothyroidism, unspecified Status: Chronic (6) Migraine headache Diagnosis: Secondary ICD Codes: G43.909 - Migraine, unspecified, not intractable, without status migrainosus Status: Chronic Consultants Dr. Finnegan, gastroenterology Procedures Colonoscopy done August 11 which revealed nonspecific colitis in the rectum and sigmoid colon Brief History 56-year-old relatively healthy female presented to ER via private vehicle for evaluation of sore throat/possible strep pharyngitis, nausea, vomiting, diarrhea , and abdominal discomfort. Sore throat and emesis have been going on for the last 36 hours, but she has had loose stools for the last 2 weeks. Emesis is bilious/nonbloody. Bowel movements are watery/nonbloody/no melena. Abdominal pain is upper and lower left quadrant. No history of abdominal surgeries. She has had fever and has had little to eat or drink over the last day and a half because of her throat pain. The throat pain is moderate to severe, constant, worse with swallowing. She reports having diarrhea for the last few weeks which has been nonbloody. No recent travel or recent antibiotic use. No others in household with similar illness. No unusual or undercooked foods. No recent medication changes, specifically no recent thyroid medication adjustment. She reports she been on the same dose of thyroid medication for approximately 5 or 6 years. She is not sure when her last thyroid blood work was done and she does blood work relatively infrequently. CBC/BMP: 08/11/17 1320 08/10/17 0555 Significant Findings Laboratory Tests Test 08/09/17 18:30 08/09/17 21:00 08/09/17 21:08/10/17 05:55 Hemoglobin 9.4 GM/DL (11.6-15.3) 8.4 GM/DL (11.6-15.3) Hematocrit 30.1 % (35.0-46.0) 27.5 % (35.0-46.0) Mean Corpuscular Volume 64.8 FL (80.0-100.0) 65.5 FL (80.0-100.0) Mean Corpuscular Hemoglobin 20.3 PG (27.0-34.0) 20.0 PG (27.0-34.0) Mean Corpuscular Hemoglobin Concent 31.3 % (32.0-36.0) 30.5 % (32.0-36.0) Red Cell Distribution Width 21.6 % (11.6-17.2) 22.3 % (11.6-17.2) Neutrophils (%) (Auto) 78.1 % (16.0-70.0) 86.2 % (16.0-70.0) Monocytes (%) (Auto) 10.0 % (0.0-8.0) Monocytes # (Auto) 1.0 TH/MM3 (0-0.9) Ovalocytes 2+ (NORMAL) 1+ (NORMAL) Prothrombin Time 12.0 SEC (9.8-11.6) Activated Partial Thromboplast Time 30.9 SEC (24.3-30.1) Albumin 2.7 GM/DL (3.4-5.0) Aspartate Amino Transf (AST/SGOT) 13 U/L (15-37) Sodium Level 135 MEQ/L (136-145) Estimat Glomerular Filtration Rate 69 ML/MIN (>89) Urine Ketones 15 mg/dL (NEG) Urine Mucus MOD /lpf (OCC) Lymphocytes (%) (Auto) 6.2 % (9.0-44.0) Lymphocytes # (Auto) 0.4 TH/MM3 (1.0-4.8) Basophilic Stippling MOD (NORMAL) Rouleau PRESENT (NORMAL) Random Glucose 158 MG/DL (74-106) Calcium Level 7.9 MG/DL (8.5-10.1) Chloride Level 109 MEQ/L (98-107) Iron Level 11 MCG/DL (50-170) Percent Iron Saturation 3.7 % (20-50) Thyroid Stimulating Hormone 3rd Gen 0.006 uIU/ML (0.358-3.740) Test 08/10/17 14:55 08/11/17 13:20 Hemoglobin 8.7 GM/DL (11.6-15.3) 9.0 GM/DL (11.6-15.3) Hematocrit 27.9 % (35.0-46.0) 29.3 % (35.0-46.0) Mean Corpuscular Volume 65.5 FL (80.0-100.0) Mean Corpuscular Hemoglobin 20.1 PG (27.0-34.0) Mean Corpuscular Hemoglobin Concent 30.7 % (32.0-36.0) Red Cell Distribution Width 22.6 % (11.6-17.2) Neutrophils (%) (Auto) 78.4 % (16.0-70.0) Lymphocytes # (Auto) 0.8 TH/MM3 (1.0-4.8) Ovalocytes 1+ (NORMAL) Imaging Last 72 hours Impressions Abdomen/Pelvis CT 08/09/172031 Signed Impressions: Service Date/Time: Wednesday, August 09, 2017 21:15 - CONCLUSION: 1. Mild diffuse wall thickening is noted involving the descending colon, sigmoid colon and rectum consistent with mild acute colitis. Clinical correlation is recommended. 2. Mild splenomegaly. Rajat Woo MD Hospital Course Patient gradually improved throughout hospital course. Vital signs remained stable. Number of bowel movements decreased and her abdominal pain improved. She tolerated oral intake well especially with the improvement in her pharyngitis. Her hemoglobin remained relatively stable with slight nat on hospital day #1 likely secondary to hemodilution. She was ambulating independently on the day of discharge. She will need follow- up with her primary care physician in a week and with gastroenterology in 1-2 weeks. She understands that the pathology report will not be available for approximately one week. Pt Condition on Discharge: Stable Discharge Disposition: Discharge Home Discharge Instructions DIET: Follow Instructions for: Heart Healthy Diet Additional Diet Instructions: Start with low-fat, light foods and advance as tolerated. Activities you can perform: Regular-No Restrictions Follow up Referrals: Gastroenterology PCP Follow-up New Orders: CBC WITH DIFF - 1 Week New Medications: Cefdinir (Cefdinir) 300 Mg Cap 300 MG PO BID for Infection, #12 CAP 0 Refills Ferrous Gluconate (Ferrous Gluconate) 240 Mg (27 Mg Iron) Tab 240 MG PO DAILY for Nutritional Supplement, #30 TAB 0 Refills Levothyroxine (Synthroid) 150 Mcg Tab 150 MCG PO DAILY@0600 for HYPOTHYROIDISM, #31 TAB Metronidazole (Flagyl) 500 Mg Tab 500 MG PO Q8HR for Infection, #18 TAB Continued Medications: Divalproex DR (Divalproex DR) 500 Mg Tabdr 500 MG PO BID for Control Seizures, #60 TAB 0 Refills Meloxicam (Meloxicam) 15 Mg Tab 15 MG PO DAILY PRN for PAIN SCALE 1 TO 10, #30 TAB 0 Refills Simvastatin (Simvastatin) 20 Mg Tab 20 MG PO HS for Cholesterol Management, #30 TAB 0 Refills Kristopher Galicia MD PhD Aug 12, 2017 08:11
[2017-08-12] MEDS: metroNIDAZOLE 500 MG TAB PO SCH ×2 (09:03→13:40)
[2017-08-12] MEDS: DIVALPROEX DR 500 MG TABEC PO SCH (09:03)
[2017-08-12] MEDS: methylPREDNISolone SOD SUCC 40 MG/1 ML VIAL IV PUSH SCH (09:04)
[2017-08-12 12:00] VITALS: BP 133/84; PULSE 79; RESP 18; TEMP 95.9; O2SAT 100
--- NOTE | 2017-08-12 14:59 | HHI.GIFU ---
Subjective Remarks Patient was seen and examined, laying in bed comfortably, no diarrhea or abdominal pain today Objective Vitals I&O Vital Signs Date Time Temp Pulse Resp B/P (MAP) Pulse Ox O2 Delivery O2 Flow Rate FiO2 08/12/17 12:00 95.9 79 18 133/84 (100) 100 08/12/17 08:00 96.7 64 16 127/73 (91) 98 08/12/17 04:00 96.2 70 20 115/70 (85) 99 08/12/17 00:00 97.3 90 20 122/71 (88) 95 08/11/17 20:00 97.9 81 20 125/70 (88) 97 08/11/17 15:18 96.8 76 16 123/83 (96) 99 I/O 08/11/17 08/11/17 08/11/17 08/12/17 08/12/17 08/12/17 07:00 15:00 23:00 07:00 15:00 23:00 Intake Total 100 ml 200 ml 200 ml 720 ml Balance 100 ml 200 ml 200 ml 720 ml Intake Oral 720 ml IV Total 100 ml 200 ml Other 200 ml # Voids 3 1 # Bowel Movements 8 2 Laboratory Date/Time Source Procedure Growth Status 08/09/17 19:15 Blood Peripheral Aerobic Blood Culture - Preliminary NO GROWTH IN 3 DAYS Resulted 08/09/17 19:15 Blood Peripheral Anaerobic Blood Culture - Preliminary NO GROWTH IN 3 DAYS Resulted 08/09/17 19:10 Throat Group A Streptococcus Screen - Final Positive - Group A Beta Strep Complete Physical Exam HEENT: Pupils round and reactive to light; normocephalic; atraumatic; no jaundice. Throat is clear. NECK: Neck is supple, no JVD, no lymphadenopathy. CHEST: Chest is clear to auscultation and percussion. CARDIAC: Regular rate and rhythm with no murmur gallop or rubs. ABDOMEN: Soft, nondistended, nontender; no hepatosplenomegaly; bowel sounds are present in all four quadrants. EXTREMITIES: No clubbing, cyanosis, or edema. SKIN: Normal; no rash; no jaundice. SUSTAIN ENGINEER: No focal deficits; alert and oriented times three. Assessment and Plan Plan Patient is doing well, she had a colonoscopy which showed colitis in the sigmoid , biopsy was done, no symptom at this point Okay to discharge home, Follow-up biopsy as an outpatient in the office. Angie Mc MD Aug 12, 2017 14:59
== END 2017-08-12 14:16 | disposition home or self-care (01) | DRG 872 ==
LOC: PHED 17:47 → PHEDA 22:17 → PH5A 08-10 10:40
PROVIDERS: ADMIT Family Medicine; ATTEND Family Medicine
PROC: 0DBN8ZX Excision of Sigmoid Colon, Via Natural or Artificial Opening Endoscopic, Diagnostic (ICD-10-PCS; 2017-08-11)
PROC: 0DBP8ZX Excision of Rectum, Via Natural or Artificial Opening Endoscopic, Diagnostic (ICD-10-PCS; principal; 2017-08-11 12:05)
DX: A41.9 Sepsis, unspecified organism (principal); J02.0 Streptococcal pharyngitis; K64.8 Other hemorrhoids; K64.4 Residual hemorrhoidal skin tags; E03.9 Hypothyroidism, unspecified; K52.9 Noninfective gastroenteritis and colitis, unspecified; E78.5 Hyperlipidemia, unspecified; M19.90 Unspecified osteoarthritis, unspecified site; D50.9 Iron deficiency anemia, unspecified; G43.909 Migraine, unspecified, not intractable, without status migrainosus; Z87.891 Personal history of nicotine dependence; Z88.0 Allergy status to penicillin; Z88.1 Allergy status to other antibiotic agents
CPT/HCPCS: 71010; 74177; 76937; 80048; 80053; 81001; 83540; 83550; 83605; 84443; 85014; 85018; 85025; 85610; 85730; 86308; 86850; 86900; 86901; 87040; 87081; 87880; 88305; 96361; 96374; 96375; J0696; J1100; J1885; J2405; J2920; J7030; Q9967